=== PATIENT | female | born 1975 | race Caucasian/White ===

== ENCOUNTER 2022-05-31 15:52 | Outpatient (REF) | payer OTHER, SELFPAY ==
--- NOTE | ~2022-05-31 | XR_ITS ---
EXAMINATION: XR SHOULDER, LEFT CLINICAL INFORMATION: Enthesopathy COMPARISON: None TECHNIQUE: Three views of the left shoulder. FINDINGS: No fracture or dislocation. The glenohumeral joint is well aligned. The joint space is maintained with small osteophytes noted. The acromioclavicular joint is intact. The visualized lung is clear. The visualized ribs are intact. 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
== END 2022-05-31 15:53 | disposition home or self-care (01) ==
LOC: HO.HMGCX 15:52
PROVIDERS: PCP Internal Medicine; Visit Provider Physician Assistant Medical
DX: M77.9 Enthesopathy, unspecified (principal)
CPT/HCPCS: 73030

== ENCOUNTER 2022-12-29 10:54 | Outpatient (AMB) | payer OTHER, SELFPAY ==
--- NOTE | 2022-12-29 11:42 | MHC.OFFWIV ---
Intake Vital Signs 12/29/22 11:55 Height 5 ft 2 in Weight 111 lb 2 oz BMI 20.3 BP 118/76 Blood Pressure Location Lt brachial Position Sitting Pulse 74 Pulse Source Pulse Oximeter Temp 98.7 F Temp Source Oral Pulse Oximetry (%) 98 Oxygen Delivery Method Room Air Intake Visit Reasons: [employer]IPMENT [employer]-Sore throat/[phone] Intake Note: Patient is here with sore throat that started out as congestion, then took 2 covid tests that came out negative. Allergies tramadol Adverse Reaction (Mild, Verified 12/29/22 11:57) Nausea and Vomiting Do you need a note to return to daycare/school/sports/work: No HPI HPI Comments History of Present Illness Details This is a 47-year-old female who presents to the office today for sick visit. Patient complaining of sore throat and bilateral otalgia x2 days in the setting of recent chest congestion. Patient states she started to developed chest congestion approximately 1 week ago. This seems to be resolving. However, she started to developed a sore throat and bilateral otalgia 2 days ago. She reports some mild chills but no fevers. 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 She is otherwise feeling well without chest pain, shortness of breath, abdominal pain, nausea/vomiting/diarrhea. Review of Systems Const All systems reviewed & are unremarkable except as noted in HPI and below Reports no additional complaints Eyes Reports no additional complaints ENT Reports no additional complaints Card Reports no additional complaints Resp Reports no additional complaints GI Reports no additional complaints Reports no additional complaints Musc Reports no additional complaints Skin/Breast Reports system reviewed and no additional complaints, except as documented Neuro Reports no additional complaints Psych Reports no additional complaints Endo Reports no additional complaints Yayo/Lymph Reports no additional complaints Aller/Immun Reports no additional complaints Physical Exam Vital Signs: Last Vital Signs Temp 98.7 F 12/29/22 11:55 Pulse 74 12/29/22 11:55 BP 118/76 12/29/22 11:55 Pulse Ox 98 12/29/22 11:55 Oxygen Delivery Method Room Air 12/29/22 11:55 BMI result Body Mass Index 20.3 Const General: cooperative, healthy appearing, no acute distress and well developed Orientation/consciousness: patient oriented x3 HEENT Other: Mild posterior oropharyngeal erythema but no exudate or edema. No peritonsillar mass noted. Head: Yes normal to inspection Ears: hearing grossly normal bilaterally, Abnormal EAC present erythema bilateral and edema bilateral and TM abnormal bulging bilateral and erythematous bilateral General nose exam: Normal external nose present Face and sinus: Yes normal facial exam Mouth: Normal oral and palatal mucosa present Eyes General: appearance normal, both eyes and all related structures Pupils: Equal, round and reactive pupils present EOM: EOMs intact bilaterally Neck Other: Boggy anterior cervical lymph nodes on the left side. Resp Effort & Inspection: normal respiratory effort and no respiratory distress Auscultation: clear to auscultation bilaterally Cardio Rate: regular rate Rhythm: regular rhythm Heart sounds: no gallops, no murmurs and no rubs Peripheral pulses: Peripheral pulses 2+ throughout GI Inspection: No distended Palpation (GI): Soft to palpation and nontender Auscultation: normal bowel sounds Skin General skin exam: no rashes or lesions noted Neuro General: patient oriented x3 Cranial nerves: Yes CN's II-XII intact bilaterally and Yes Equal, round and reactive pupils present Gait exam (Neuro): Normal gait present Motor exam (neuro): 5/5 motor strength present throughout Extrem General: Yes normal to inspection, Yes full ROM and Yes no clubbing, cyanosis or edema Psych Appearance: grossly normal Mental Status: mental status grossly normal Assessment & Plan Assessment & Plan (1) Viral pharyngitis: Code(s): J02.9 - Acute pharyngitis, unspecified (2) Acute otitis media: Code(s): H66.90 - Otitis media, unspecified, unspecified ear Plan This is a 47-year-old female presenting with sore throat and bilateral otalgia in the setting of recent chest congestion. On physical examination, she has erythema and edema bilateral tympanic membranes and external auditory canals as well as mild posterior oropharyngeal erythema. Rapid strep negative. History and physical most consistent with acute otitis media and viral pharyngitis. Patient's vital signs are stable, her physical exam is otherwise benign, and she is overall nontoxic appearing. Patient is safe to be discharged home. She was sent home on p.o. amoxicillin clavulanate twice daily x7 days for treatment of acute otitis media. Otherwise, recommended symptomatic management including rest, increased fluids, advil/tylenol for pain/fever, saltwater gargles, and over the counter throat lozenges/decongestants. Patient advised to follow up here or go to the emergency room for worsening/persistent symptoms. Medications: New amoxicillin-pot clavulanate 875-125 mg 1 tab PO BID 14 tabs 0RF Coding Level of Care Code New Pt Level 3 (60822) Diagnoses Viral pharyngitis J02.9 Acute otitis media H66.90
[2022-12-29 11:55] VITALS: BP 118/76; PULSE 74; TEMP 37.1; O2SAT 98; BMI 20.3
== END 2022-12-29 12:18 | disposition home or self-care (01) ==
PROVIDERS: PCP Internal Medicine; Visit Provider Physician Assistant Medical
DX: J02.9 Acute pharyngitis, unspecified (principal); H66.90 Otitis media, unspecified, unspecified ear
CPT/HCPCS: 87880; 99051; 99203